=== PATIENT | male | born 1960 | race Caucasian/White ===

== ENCOUNTER 2020-08-07 10:57 | Observation (INO) ==
[2020-08-07] MEDS ORDERED: IOPAMIDOL 100 ML BOTTLE IV ONE (10:58)
[2020-08-07] MEDS ORDERED: diphenhydrAMINE 50 MG/ML VIAL IV ONE (11:31)
[2020-08-07] MEDS ORDERED: 0.9 % SODIUM CHLORIDE 1,000 ML IV ONE (11:31)
[2020-08-07] MEDS ORDERED: PROCHLORPERAZINE 10 MG/2 ML VIAL IV ONE (11:31)
[2020-08-07] MEDS: morphine 2 MG/ML VIAL IV PRN ×5 (11:50→16:05)
[2020-08-07 12:15] LABS: Basophils # (Auto) 0.02 K/mcL (0.00-0.20); Basophils % (Auto) 0.2 % (0.0-2.0); Eosinophils # (Auto) 0.09 K/mcL (0.00-0.70); Eosinophils % (Auto) 0.7 % (0.0-7.0); Hematocrit 44.5 % (41.0-55.0); Hemoglobin 14.7 g/dL (13.5-16.5); Lymphocytes # (Auto) 3.03 K/mcL (1.50-4.80); Lymphocytes % (Auto) 23.9 % (15.0-49.0); Mean Cell Volume 81.4 fL (80.0-100.0); Mean Platelet Volume 9.3 fL (7.4-10.4); Monocytes # (Auto) 0.84 K/mcL (0.10-0.90); Monocytes % (Auto) 6.6 % (1.0-12.0); Neutrophils % (Auto) 68.6 % (38.0-78.0); Platelet Count 383 K/mcL (140-440); RBC 5.47 M/mcL (4.50-5.90); Red Cell Distribution Width 13.8 % (11.5-14.5); WBC 12.7 K/mcL (4.5-11.0)
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
[2020-08-07 12:36] LABS: ALT/SGPT 72 U/L (<40); AST/SGOT 111 U/L (<40); Albumin 4.5 gm/dL (3.2-5.2); Albumin/Globulin Ratio 1.6 (1.0-2.3); Alkaline Phosphatase 72 U/L (39-117); Bilirubin,Total 0.6 mg/dL (0.1-1.0); Blood Urea Nitrogen 10 mg/dL (6-20); Calcium 9.7 mg/dL (8.6-10.4); Carbon Dioxide 24 mmol/L (22-30); Chloride 97 mmol/L (96-108); Globulin 2.8 gm/dL (2.2-3.7); Glomerular Filtration Rate 92; Glucose 125 mg/dL (70-105)
--- NOTE | 2020-08-07 13:08 | Cat Scan Report ---
CLINICAL INFORMATION: Right upper quadrant pain COMPARISON: None. TECHNIQUE: Following enteric contrast, 80 cc of Isovue-370 were injected intravenously, and 60 seconds later, 0.625 mm helical slices were obtained from the mid heart through the subtrochanteric regions. Following reconstruction, 2.5 mm sagittal, coronal and axial reformatted images were processed and reviewed at bone, lung and soft tissue windows. Five minutes later, 0.625 mm helical slices were obtained from the mid heart through the kidneys and viewed at soft tissue windows.The exam was performed using radiation dose optimization techniques including, but not limited to, automated exposure control, adjustment of the mA and/or kV according to patient size and use of iterative reconstruction technique. FINDINGS: The lung bases show a few small well-circumscribed pleural-based nodules which are almost certainly benign subpulmonic lymph note: 4.3 mm in the lateral segment right middle lobe on image two, three nodules ranging between two and 4 mm in the anterior basilar segment image five, 3.6 mm posterior segment left hepatic lobe on image eight. There are no effusions. The visualized heart is normal. There is mild wall thickening of the distal esophagus likely reflecting peptic disease or other pelvic pathology. Abdominal images show minimal fatty change within the liver, but no focal hepatic lesion. The gallbladder is mildly dilated and there is enhancement of the gallbladder wall with scattered tiny wall nodules suggesting adenomyomatosis. Small amount of fluid is seen in the pericholecystic region. No stones identified. The common bile duct is normal caliber - 6 mm. Pancreatic duct is moderately dilated - 5 mm. There is mild enlargement and inhomogeneity of the pancreatic head, uncinate process and pancreatic neck with inflammation in the peripancreatic fat planes extending to the duodenum. Findings compatible with a focal simple pancreatitis. There is no necrosis, pseudocyst, splenic vein thrombosis or other complication A 3 mm nonobstructing stone present within an inferior calyx of the left kidney and a 1 mm nonobstructing stone mid calyx left kidney. Both adrenal glands, spleen and aorta including aortic branches are normal in size, configuration and attenuation without focal lesion. Pelvic images show prostate is mildly enlarged with a transverse dimension of 5.1 cm. Seminal vesicles and urinary bladder are normal. Sigmoid diverticulosis noted, but no evidence of diverticulitis. The remaining colon appendix region small bowel and stomach are normal. Bone windows show no osseous abnormality. IMPRESSION: 1. Simple pancreatitis involving the pancreatic head, uncinate process and neck. There is no necrosis or other complication. This could be related alcohol or gallstone pancreatitis. Autoimmune pancreatitis is possible less likely 2. Mild gallbladder enlargement with wall thickening and scattered mural nodules compatible cholecystitis and/or adenomyomatosis. There is also mild pericholecystic fluid. Consider gallbladder ultrasound to evaluate for stone in both gallbladder and ducts. 3. Small nonobstructing stones in both kidneys. 4. Scattered pleural-based nodules the lung bases most compatible benign subpulmonic lymph nodes 5. Sigmoid diverticulosis, but no evidence of diverticulitis 6. Mild prostate enlargement Interpreted and Authenticated by: Eleuterio Kahn 08/07/20
[2020-08-07] MEDS ORDERED: LEVOFLOXACIN 750 MG/150 ML BAG IV ONE (14:35)
[2020-08-07] MEDS ORDERED: ONDANSETRON 4 MG/2 ML VIAL IV PRN (14:37)
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
[2020-08-07] MEDS: LACTATED RINGERS 1,000 ML IV SCH ×2 (17:35→22:49)
--- NOTE | 2020-08-07 18:37 | Ultrasound Report ---
CLINICAL INFORMATION: RUQ pain pancreatitis on CT. Evaluate for gallstones COMPARISON: None. FINDINGS: Liver is normal in size and slightly heterogeneous echotexture - no focal hepatic abnormality. Multiple small stones within the gallbladder. Gallbladder wall is diffusely thickened (4 mm) and focally tender compatible with cholecystitis. Common bile duct is normal - 5 mm. The pancreatic head/neck are mildly enlarged and heterogeneous compatible with pancreatitis IMPRESSION: Cholecystitis. Gallstones present within the gallbladder. This would increase the probability of gallstone pancreatitis Mild enlargement of the pancreatic head and neck with inhomogeneous echotexture compatible with pancreatitis Interpreted and Authenticated by: Eleuterio Kahn 08/07/20
[2020-08-07] MEDS: HYDROmorphone 0.5 MG/0.5 ML SYRINGE IV PRN ×3 (18:47→23:12)
[2020-08-07] MEDS ORDERED: morphine 2 MG/ML VIAL IV PRN (20:41)
[2020-08-08] MEDS: LACTATED RINGERS 1,000 ML IV SCH ×5 (01:10→18:52)
[2020-08-08] MEDS: HYDROmorphone 0.5 MG/0.5 ML SYRINGE IV PRN ×3 (01:43→07:41)
[2020-08-08 07:00] LABS: Amylase 285 U/L (28-100)
[2020-08-08 07:01] LABS: Basophils # (Auto) 0.01 K/mcL (0.00-0.20); Basophils % (Auto) 0.1 % (0.0-2.0); Eosinophils # (Auto) 0 K/mcL (0.00-0.70); Eosinophils % (Auto) 0 % (0.0-7.0); Hematocrit 39.7 % (41.0-55.0); Hemoglobin 13.1 g/dL (13.5-16.5); Lymphocytes # (Auto) 1.06 K/mcL (1.50-4.80); Lymphocytes % (Auto) 7.5 % (15.0-49.0); Mean Cell Volume 80.4 fL (80.0-100.0); Monocytes # (Auto) 1.14 K/mcL (0.10-0.90); Monocytes % (Auto) 8.1 % (1.0-12.0); Neutrophils % (Auto) 84.3 % (38.0-78.0); Platelet Count 286 K/mcL (140-440); RBC 4.94 M/mcL (4.50-5.90); Red Cell Distribution Width 13.9 % (11.5-14.5); WBC 14.1 K/mcL (4.5-11.0)
[2020-08-08 07:04] LABS: ALT/SGPT 51 U/L (<40); AST/SGOT 28 U/L (<40); Albumin 3.8 gm/dL (3.2-5.2); Albumin/Globulin Ratio 1.5 (1.0-2.3); Alkaline Phosphatase 59 U/L (39-117); Bilirubin,Total 0.6 mg/dL (0.1-1.0); Blood Urea Nitrogen 7 mg/dL (6-20); Calcium 8.8 mg/dL (8.6-10.4); Carbon Dioxide 23 mmol/L (22-30); Chloride 98 mmol/L (96-108); Globulin 2.5 gm/dL (2.2-3.7); Glomerular Filtration Rate 102; Glucose 128 mg/dL (70-105)
[2020-08-08] MEDS ORDERED: IPRATROPIUM/ALBUTEROL 3 ML AMPUL.NEB NEB PRN ×2 (08:00→09:35)
[2020-08-08] MEDS ORDERED: SCOPOLAMINE 1 PATCH PATCH TOPICAL PRN (08:00)
[2020-08-08] MEDS ORDERED: CLINDAMYCIN 900 MG in DEXTROSE 5% IN WATER 50 ML IV ONE (08:52)
[2020-08-08] MEDS ORDERED: ROCURONIUM 10 MG/ML ML IV ONE (09:12)
[2020-08-08] MEDS ORDERED: MAGNESIUM SULFATE 2 GM/50 ML BAG IV ONE (09:12)
[2020-08-08] MEDS ORDERED: MIDAZOLAM 5 MG/5 ML VIAL ONE (09:12)
[2020-08-08] MEDS ORDERED: PROPOFOL 200 MG/20 ML VIAL IV ONE (09:12)
[2020-08-08] MEDS ORDERED: LIDOCAINE HCL/PF 100 MG/5 ML SYRINGE IV ONE (09:12)
[2020-08-08] MEDS ORDERED: DEXAMETHASONE 10 MG/ML VIAL ONE (09:12)
[2020-08-08] MEDS ORDERED: SUCCINYLCHOLINE 20 MG/ML ML IV ONE (09:12)
[2020-08-08] MEDS ORDERED: KETAMINE 100 MG/ML ML ONE (09:12)
[2020-08-08] MEDS ORDERED: fentaNYL 100 MCG/2 ML VIAL IV ONE (09:12)
[2020-08-08] MEDS ORDERED: GLYCOPYRROLATE 0.2 MG/ML VIAL IV ONE (09:12)
[2020-08-08] MEDS ORDERED: KETOROLAC 30 MG/ML VIAL ONE (09:12)
[2020-08-08] MEDS ORDERED: PHENYLEPHRINE 10 MG/ML VIAL ONE (09:12)
[2020-08-08] MEDS ORDERED: LIDOCAINE W/EPI 1% 20 ML VIAL IJ ONE (09:15)
[2020-08-08] MEDS ORDERED: BUPIVACAINE 0.5% 50 ML VIAL IJ ONE (09:15)
[2020-08-08] MEDS ORDERED: IOVERSOL 20 ML VIAL IV ONE (09:30)
[2020-08-08] MEDS ORDERED: BENZOCAINE/MENTHOL 1 LOZENGE PO PRN (09:35)
[2020-08-08] MEDS ORDERED: METHOCARBAMOL 1,000 MG/10 ML VIAL IV PRN (09:35)
[2020-08-08] MEDS ORDERED: ACETAMINOPHEN 1,000 MG/100 ML BAG IV ONE (09:35)
[2020-08-08] MEDS ORDERED: FLUMAZENIL 0.1 MG/ML ML IV PRN (09:35)
[2020-08-08] MEDS ORDERED: NALOXONE HCL 0.4 MG/ML VIAL IV PRN (09:35)
[2020-08-08] MEDS ORDERED: HYDROmorphone 0.5 MG/0.5 ML SYRINGE IV PRN ×2 (09:35→11:02)
[2020-08-08] MEDS ORDERED: LACTATED RINGERS 250 ML IV PRN (09:35)
[2020-08-08] MEDS ORDERED: fentaNYL 100 MCG/2 ML VIAL IV PRN (09:35)
[2020-08-08] MEDS ORDERED: ONDANSETRON 4 MG/2 ML VIAL IV PRN ×2 (09:35→11:02)
[2020-08-08] MEDS ORDERED: LACTATED RINGERS 1,000 ML IV SCH (09:45)
--- NOTE | 2020-08-08 10:14 | Operative Note ---
Brief Operative Note Date of procedure: 08/08/20 Pre-op diagnosis: Gallstone pancreatitis, acute cholecystitis, cholelithiasis Post-op diagnosis: same Procedure: Laparoscopic cholecystectomy with interrupted cholangiogram Grafts/Implants: No Anesthesia: GETA Findings: Cholecystitis, cholelithiasis no evidence of choledocholithiasis Complications: none Surgeon: Elder Rosales Estimated blood loss (cc): 10 Specimens Removed/Pathology: other (Gallbladder and contents) Condition: stable Disposition: PACU Operative Note Operative Note: After risk benefits and alternatives to the procedure were discussed with patient at length he verbalized understanding and desire to continue with the procedure. Patient was taken main operating room placed supine operative table. General anesthesia was induced over endotracheal tube. Patient's prepped and draped in the standard sterile surgical fashion surgical timeout was taken verify patient and procedure being performed. 1% lidocaine half percent Marcaine was used for local anesthesia throughout the case. A left upper quadrant incision was made and the varies needle was introduced and the abdominal cavity was insufflated with carbon dioxide in standard fashion. The abdominal cavity was then entered under direct vision using a 5 mm Optiview trocar through infraumbilical incision. Visual inspection revealed no injuries and the varies needle was removed under direct vision. 11 mm subxiphoid and 2 right upper quadrant 5 mm trochars were then placed under direct vision. Patient was placed in a head up right side up position and attention was turned to the gallbladder. The peritoneal attachments were taken down to pedunculated the gallbladder in the standard fashion. [place] INES was carefully dissected free with blunt dissection. Once a critical view of safety was clearly identified cystic duct was clipped ductotomy was created and an conjugant catheter was inserted. On table cholangiogram was performed which showed free flow of contrast into the duodenum without any filling defects in the biliary tree. The conjoined catheter was removed the cystic duct was surgically clipped and transect the cystic artery was likewise surgically clipped and transected. The gallbladder was then removed from the gallbladder fossa using electrocautery. Is placed in Endo Catch bag removed through the upper midline incision and passed off the field for surgical pathology. Attention was turned back to the gallbladder fossa which was copiously irrigated and inspected for hemostasis. Hemostasis was assured with electrocautery. All irrigant was then suctioned free from the abdominal cavity. Visual inspection revealed no further pathology or injuries were identified. The upper midline fascial defect was then closed with an interrupted 0 Vicryl suture. The CO2 and trochars were then removed from the abdominal cavity and all trocar sites were inspected for hemostasis. The skin edges were then closed with interrupted 4-0 Monocryl sutures and skin glue dressings were applied. Patient was then awakened from general anesthesia transferred postanesthesia care unit awake alert in good condition.
[2020-08-08] MEDS ORDERED: ACETAMINOPHEN 160 MG/5 ML ORAL.SOL PO PRN (11:02)
[2020-08-08] MEDS ORDERED: oxyCODONE HCL 5 MG TABLET PO PRN (11:02)
[2020-08-08] MEDS ORDERED: IBUPROFEN 800 MG TABLET PO PRN (11:02)
--- NOTE | 2020-08-08 13:36 | XRay Report ---
CLINICAL INFORMATION: LINN WITH GRAMS COMPARISON: None. FINDINGS: Injection through the cystic duct shows opacification of the common bile duct which appears only mildly dilated with abrupt tapering near the ampullary region suggesting edema or spasm. There are no filling defects to suggest choledocholithiasis. IMPRESSION: No evidence of choledocholithiasis. Interpreted and Authenticated by: Eleuterio Kahn 08/08/20
[2020-08-08] MEDS: oxyCODONE HCL 5 MG TABLET PO PRN ×2 (18:29→23:06)
[2020-08-09] MEDS: LACTATED RINGERS 1,000 ML IV SCH ×2 (00:21→04:28)
[2020-08-09] MEDS: oxyCODONE HCL 5 MG TABLET PO PRN ×2 (04:15→08:51)
--- NOTE | 2020-08-09 08:21 | Discharge Summary ---
Discharge Provider Provider Patient information: Note initiated : 08/09/20 at 8:19 am Service Date, if different from initiated Date: [] Patient: Lopez Gordon 59 y/o M admitted on 08/07/20 for Abd pain. Chief Complaint: [] Date of admission: 08/07/20 16:30 Discharge date: 08/09/20 Consults: 08/07/20 14:29 Consult to Physician [CONS] Stat Comment: Consulting Provider: Elder Rosales Reason For Exam: Physician to Consult COURSE Hospital Course Hospital course: Patient was admitted with signs and symptoms consistent with gallstone pancreatitis, he underwent a laparoscopic cholecystectomy with a negative intraoperative cholangiogram and is progressing back to normal. Discharge diagnosis: Gallstone pancreatitis, cholelithiasis, cholecystitis, choledocholithiasis Time Spent with Patient Time attestation: Total time spent providing and/or coordinating discharge services: Physical Examination Vital Signs Vital signs: Temp Pulse Resp BP Pulse Ox 98.5 F 84 18 137/80 94 08/09/20 07:54 08/09/20 07:54 08/09/20 07:54 08/09/20 07:54 08/09/20 07:54 Discharge Plan Patient/Caregiver Discharge Instructions Activity: increase activity as tolerated Diet: Regular Diet Activity Restrictions/Additional Instructions: Gradually increase activity as tolerated. Prescriptions: New ibuprofen 800 mg Tablet 800 mg PO TIDP PRN (Reason: Per Pain Protocol) Qty: 60 RF: 0 oxycodone 5 mg Tablet 5 mg PO Q4-6HP PRN (Reason: Per Pain Protocol) Qty: 5 RF: 0 acetaminophen [Tylenol 8 Hour] 650 mg tablet extended release 650 mg PO Q8H PRN (Reason: pain) Qty: 60 RF: 0 Continued metoprolol succinate 50 mg tablet extended release 24 hr 50 mg PO QDAY Qty: 90 RF: 3 losartan 100 mg tablet 100 mg PO QDAY Qty: 90 RF: 3 omeprazole 20 mg capsule,delayed release(DR/EC) 20 mg PO QDAY Qty: 90 RF: 3 allopurinol 300 mg tablet 300 mg PO QDAY Qty: 90 RF: 3 Hold Instructions: Trial of Uloric given amlodipine 10 mg tablet 10 mg PO QDAY Qty: 90 RF: 3 No Action hydrocodone-acetaminophen 7.5-325 mg tablet 1 tab PO QID PRN (Reason: pain) Qty: 84 RF: 0 Follow Up Plan Follow up with: Elder Rosales MD [Physician] - (Follow-up with me in 1 to 2 weeks) Patient Disposition: Home, Self-Care Hospital Course: This is a pleasant 59-year-old gentleman who presented with signs and symptoms consistent with gallstone pancreatitis. Patient was admitted, made n.p.o., his pancreatic enzymes returned to normal and he underwent a laparoscopic cholecys tectomy. He is now tolerating diet and cleared for discharge. Overall status at discharge: patient is progressing back to baseline Discharge Orders: Discharge Order (Routine); Ordered 08/09/20 Ordered By: Elder Rosales Pending Pending Pending: Resuscitation Status Full Code Diet Regular Diet Start SunAug 08 1102 Diet Regular Diet Start SunAug 08 1102 Lactated Ringer's (Lactated Ringers) 1,000 mls @ 125 mls/hr IV .Q8H CUCA Last Admin: 08/09/20 04:28 Dose: Not Given Documented by: Admin: 08/09/20 00:21 Dose: 125 mls/hr Documented by: Infusion: 08/09/20 00:14 Dose: 125 mls/hr Documented by: Admin: 08/08/20 18:52 Dose: Not Given Documented by: Admin: 08/08/20 16:14 Dose: 125 mls/hr Documented by: [email or web address] Admin: 08/08/20 15:28 Dose: Not Given Documented by: RODRIGO Oxycodone HCl (Oxycodone Hcl 5 Mg Tablet) 5 mg PO Q4-6HP PRN; Protocol PRN Reason: Per Pain Protocol Last Admin: 08/09/20 04:15 Dose: 5 mg Documented by: Admin: 08/08/20 23:06 Dose: 5 mg Documented by: Admin: 08/08/20 18:29 Dose: 5 mg Documented by: SUSAN Shift Summary 08/09/20 04:01 Shift Summary by Bibiana Soliman Diagnosis: 08/07 Gallstones, Pancreatitis, Cholecystitis, 08/08 Lap Gloria Brief history of present illness: Pt admitted for abd pain which then gradually got worse not associated with nausea vomiting fevers or chills. Orientation: A&Ox4 using call light and making needs known Ambulation status: SBA R/T recent surgery Voiding: Voiding via urinal PRV 99 at 0400 IV access: 20g Rt hand with LR at 125ml/hr. Second IV RT AC SL Tubes/drains: none Pain: Oxy 5mg tabs i every 4-6hrs Wounds: Lap sites x4 Initialized on 08/09/20 04:01 - END OF NOTE
[2020-08-09] MEDS ORDERED: ALLOPURINOL 300 MG TABLET PO SCH (09:00)
[2020-08-09] MEDS ORDERED: LOSARTAN 50 MG TABLET PO SCH (09:00)
[2020-08-09] MEDS ORDERED: amLODIPine 10 MG TABLET PO SCH (09:00)
[2020-08-09] MEDS ORDERED: OMEPRAZOLE 20 MG CAPSULE PO SCH (09:00)
[2020-08-09] MEDS ORDERED: METOPROLOL SUCCINATE 50 MG TAB.XL.24H PO SCH (09:00)
--- NOTE | 2020-08-10 13:12 | Surgical Pathology Report ---
Histology Microscopic Diagnosis Specimen A- GALLBLADDER, CHOLECYSTECTOMY: --- ACUTE AND CHRONIC CHOLECYSTITIS WITH CHOLELITHIASIS. (RLF) Clinical History Gallstone pancreatitis. Procedural Impression Cholecystitis, cholelithiasis. Gross Description Received in formalin designated gallbladder, is a tobin-barragan gallbladder measuring 7.6 x 3.3 x 1.9 cm. There is a metal clip on the duct. The specimen contains a few barragan-black stones up to 0.1 cm. The mucosa is covered with lacy yellow pigmentation. The wall is up to 0.2 cm thick with up to 0.4 cm of barragan fat. Director Global sections are submitted in one cassette. (SCB:adj) Electronically Signed Margret Dean MD, FCAP Electronically Signed 08/10/2020 13:11
== END 2020-08-09 12:00 | disposition home or self-care (01) ==
LOC: MERGE 10:57 → MEDSUR 10:57 → ED 10:57 → MEDSUR 16:42
PROVIDERS: ADMIT Surgery; ATTEND Surgery